=== PATIENT | male | born 1955 | race Caucasian/White ===

== ENCOUNTER → 2017-05-11 | Outpatient (CLI) | payer BC, OTHER ==
[~2017-05-11] MED LIST: CLON0.5T3 PO; IBUP-103 PO; MULT-506 PO
--- NOTE | 2017-05-11 12:54 | DIAGNOSTIC IMAGING REPORT ---
LEFT SHOULDER 3 VIEWS CLINICAL HISTORY: Left shoulder sprain. FINDINGS: 3 views of the left shoulder are obtained. No prior studies are available for comparison at the time of dictation. The skeletal structures are well mineralized. No fracture or dislocation is seen. Mild productive degenerative change is seen at the acromioclavicular joint. The glenohumeral articulation is preserved. The overlying soft tissues are within normal limits. Imaged left upper lobe lung parenchyma appears clear. IMPRESSION: No fracture or dislocation is seen in the left shoulder. Electronically signed by: Jaspal Mariano M.D. 05/11/2017 12:52 PM Dictated Date/Time: 05/11/2017 12:51 PM
== END | disposition home or self-care (01) ==
LOC: C.RAD1850 12:34
PROVIDERS: ATTEND Preventive Medicine Occupational Medicine
DX: S43.401A Unspecified sprain of right shoulder joint, initial encounter (principal); S40.011A Contusion of right shoulder, initial encounter; X58.XXXA Exposure to other specified factors, initial encounter

== ENCOUNTER → 2017-05-20 | Outpatient (CLI) | payer OTHER, BC ==
--- NOTE | 2017-05-20 19:25 | DIAGNOSTIC IMAGING REPORT ---
ADDENDUM Findings were discussed with the patient on 05/20/17 at 21:00. Immobilization of the shoulder and a possible emergency department visit were discussed with the patient. The patient has a scheduled appointment with his referring physician on Tuesday and would prefer to follow-up with his doctor. Electronically signed by: Jaspal Mariano M.D. 05/20/2017 8:58 PM Dictated Date/Time: 05/20/2017 8:55 PM ORIGINAL REPORT MRI OF THE LEFT SHOULDER CLINICAL HISTORY: Left shoulder pain. COMPARISON STUDY: Radiograph of left shoulder dated 05/11/2017. TECHNIQUE: MRI of the left shoulder was performed utilizing various T1 and T2 weighted sequences in the axial, sagittal, coronal planes. IV contrast was not administered for this examination. The examination is modestly degraded by motion artifact. FINDINGS: Rotator cuff: There is tendinopathy of the supraspinatus tendon. There is a large full-thickness tear through the anterior fibers of the services supraspinatous tendon, best seen on coronal image #9. The tear measures up to 6 mm in length and 10 mm in AP diameter, and is located approximately 2 cm from the leading edge. The posterior fibers of the tendon remain intact. No musculotendinous retraction is seen. Conus medullaris tendon is preserved. The teres minor and subscapularis tendons are intact. There is subacromial and subdeltoid bursal fluid. Productive degenerative changes seen at the acromioclavicular joint. Biceps tendon: The long head of the biceps tendon is normal in signal intensity and located within the bicipital groove. The anchor is maintained. Labrum: There is a SLAP tear of the superior labrum. Shoulder joint: There is a minimally distracted fracture through the anterior glenoid, best seen on axial image #12. The fragment measures approximately 9 mm and is displaced by at most 2 mm. This extends through the articular cartilage of the glenoid. There is no joint effusion. . Musculature and soft tissues: Edema is seen within the body of the infraspinous muscle. No atrophy is identified. The remaining shoulder musculature is normal in bulk and signal intensity. IMPRESSION: 1. There is an avulsion fracture through the anterior aspect of the glenoid which extends through the articular cartilage. The avulsed fragment measures up to 9 mm and is distracted by most 2 mm. 2. There is a SLAP tear of the glenoid labrum. 3. There is a large full thickness tear involving the anterior fibers of the supraspinatous tendon as detailed above. The posterior fibers are intact and there is no musculotendinous retraction. 4. Intramuscular edema is noted within the body of supraspinatus. 5. The remainder of the rotator cuff is intact. Electronically signed by: Jaspal Mariano M.D. 05/20/2017 7:24 PM Dictated Date/Time: 05/20/2017 7:15 PM
== END | disposition home or self-care (01) ==
LOC: C.MRI 18:26 → EDSTATUS 19:00
PROVIDERS: ATTEND Preventive Medicine Occupational Medicine
DX: S43.432A Superior glenoid labrum lesion of left shoulder, initial encounter (principal); M75.102 Unspecified rotator cuff tear or rupture of left shoulder, not specified as traumatic; X58.XXXA Exposure to other specified factors, initial encounter; R60.9 Edema, unspecified

== ENCOUNTER → 2017-07-18 | Outpatient (CLI) | payer OTHER, BC | END | disposition home or self-care (01) | LOC: C.LABSPEC 13:07 | PROVIDERS: ATTEND Internal Medicine | DX: Z12.11 Encounter for screening for malignant neoplasm of colon (principal) ==

== ENCOUNTER 2023-04-15 17:47 | Observation (INO) ==
--- NOTE | 2023-04-15 17:52 | ED Triage Note ---
Date of Service April 15, 2023 History of Present Illness This patient was briefly evaluated while in triage. An abbreviated physical exam was performed. This patient is a 67-year-old Male who presents to the ED for evaluation of Feeling weak, hot, poor sleep x 2 days, anorexia drinking fine no CP/SOB/Cough/Abd pain/vomiting Physical Exam GENERAL: NAD, ambulatory into triage CARDIOVASCULAR: RRR RESPIRATORY: CTA ABDOMEN: BS x 4. Nontender to palpation. Initial orders for labs and / or imaging were placed and patient was placed in the waiting area until a bed is available. Please see further documentation for the full ED course.
[2023-04-15] MEDS ORDERED: SODIUM CHLORIDE 0.9% 1000ML 1,000 ML IV ONE ×2 (18:09→20:18)
--- NOTE | 2023-04-15 18:11 | Emergency Department Note ---
Impression & Plan Sepsis, Weakness, Leukocytosis, Acute UTI, Elevated troponin, Acute hyponatremia ED Provider Note NAME: ALEJANDRA JEFFERS AGE: 67 SEX: M : 1955 ARRIVES VIA: Walk-In INFORMANT: [Patient] ED PROVIDER(S): [Jaspal Mariee MD] CHIEF COMPLAINT: Weakness HISTORY OF PRESENT ILLNESS: The patient is a 67-year-old male who states that he has had 2 days of weakness. He has not slept in 2 days. His whole body is weak, not 1 side. He may have had some chills but there has been no fever. He has not had chest pain or abdominal pain. No vomiting or diarrhea. He is not short of breath. No urinary complaints. He has a slight cough but nothing really to speak of. No recent sick contacts. He cannot recall ever feeling this way before. PMHx/PSHx: See Below SOCIAL HISTORY: See Below. PHYSICAL EXAM: GENERAL: Patient is in no acute distress. HEENT: No acute trauma, normocephalic atraumatic, mucous membranes moist, no nasal congestion. NECK: No stridor, no adenopathy, no meningismus, trachea is midline. LUNGS: Clear to auscultation bilaterally, no wheeze, no rhonchi, breath sounds equal. HEART: Without murmurs gallops or rubs, regular rate and rhythm. ABDOMEN: Soft, nontender, bowel sounds positive, no peritonitis. EXTREMITIES: No cyanosis or edema, full range of motion of all the joints wi thout pain or difficulty, no signs for acute trauma. NEUROLOGIC: Oriented x 3, no acute motor or sensory deficits, no focal weakness. SKIN: No rash, no jaundice, no diaphoresis. DIFFERENTIAL DIAGNOSIS: Dehydration, electrolyte imbalance, viral illness, foodborne illness, UTI, s epsis, Lyme disease, [place], among others. EMERGENCY DEPARTMENT COURSE/PROCEDURES: Prior/Outside records reviewed: None. ECG per my interpretation: Indication was weakness. The ECG shows a normal sinus rhythm with a rate of 99. There is no ST elevation, no PVCs. The QTc is 433. Continuous Cardiac Monitoring per my interpretation: An order was placed for continuous cardiac monitoring. The monitor shows a rate of 101 with sinus tachycardia. Critical Care Note: I have personally spent 43 minutes of critical care time in the direct management of this patient. This includes bedside care, interpretation of diagnostic studies, and testing, discussion with consultants, patient, and family members, and other required patient management activities. This 43 minutes is in excess of all separately billable procedures. MEDICAL DECISION MAKING: There is a marked leukocytosis at 30,000, this would be consistent with infection. There was a normal hemoglobin and platelet count. Sodium was low at 130, no renal failure. Lactic acid level was not elevated making severe sepsis less likely. No concerning liver enzyme elevation. The patient appeared to be in a euthyroid state. ECG shows a normal sinus rhythm, no ischemia. Cardiac enzyme testing x1 is slightly elevated. This troponin elevation could be secondary to cardiac injury or just mismatch. Urinalysis is consistent with infection. Lyme disease testing is negative. COVID test is negative. Chest film does not show pneumonia or CHF per my review. Abdominal and pelvis CT shows some incidental findings, no urinary or bowel obstruction, no acute surgical process by CT imaging. Patient received IV saline, 2 L. He received IV Zofran for nausea, he was given IV cefepime as antibiotic coverage. The patient appears to be in early sepsis from a urinary source. This has caused his weakness and complaints. The patient is in need of a hospital stay. I did speak with the patient and his significant other. I did speak with case management, the on-call hospitalist was consulted. The patient does appear improved with the treatment provided here in the ED. DISPOSITION: Past Med/Surg History Medical History (Updated 04/15/23 @ 22:41 by Jaspal Mariee MD) Acute bronchitis Social History Smoking Status: Never smoker Preferred Language: [place] Feels Safe at Home: Yes Allergies Allergies Allergy/AdvReac Type Severity Reaction Status Date / Time No Known Allergies Allergy NONE Unverified 04/15/23 20:40 Home Meds Home Medications Medication Instructions Recorded Confirmed ibuprofen 400 mg tablet 400 mg PO DAILY PRN Pain 04/27/19 04/15/23 [id number] acid 300 1 tab PO DAILY 04/15/23 04/15/23 mcg-lycopene 600 mcg-lutein 300 mcg tablet (Centrum Silver Ultra Men's) Results & Data (ED) Vital Signs Vital Signs - 24 hr 04/15/23 17:51 04/15/23 18:08 04/15/23 17:53 Temperature 36.3 C L Temperature Source Temporal Artery Scan Pulse Rate 100 H 102 H Pulse Rate from SpO2 Sensor Respiratory Rate 20 Respiratory Effort / Characteristics Non-Labored Respiratory Depth Normal Blood Pressure 125/76 Blood Pressure Mean 92 Pulse Oximetry 95 Oxygen Delivery Method Room Air Room Air Sepsis Recent Fever Within 48 Hours No Sepsis New/Unexplained Change in Mental Status N/A Sepsis Action Taken by Nursing No Action Required 04/15/23 18:09 04/15/23 18:30 04/15/23 19:00 Temperature Temperature Source Pulse Rate 99 H 100 H Pulse Rate from SpO2 Sensor 100 H 101 H Respiratory Rate 24 22 Respiratory Effort / Characteristics Respiratory Depth Blood Pressure Blood Pressure Mean Pulse Oximetry 93 94 Oxygen Delivery Method Sepsis Recent Fever Within 48 Hours Sepsis New/Unexplained Change in Mental Status Sepsis Action Taken by Nursing 04/15/23 19:30 04/15/23 20:02 04/15/23 20:03 Temperature Temperature Source Pulse Rate 99 H Pulse Rate from SpO2 Sensor 98 H 97 H Respiratory Rate 24 Respiratory Effort / Characteristics Respiratory Depth Blood Pressure 141/66 H Blood Pressure Mean 95 Pulse Oximetry 94 93 Oxygen Delivery Method Sepsis Recent Fever Within 48 Hours Sepsis New/Unexplained Change in Mental Status Sepsis Action Taken by [facility] Medications Current Medication List: was personally reviewed by me Laboratory Data Attestation: I reviewed the patient's lab results. 04/15/23 18:08 04/15/23 18:09 Lab Results 04/15/23 04/15/23 04/15/23 Range/Units 18:08 18:08 18:08 WBC 30.22 H* (4.8-10.8) K/ul RBC 5.21 (4.70-6.10) M/uL Hgb 16.6 (14.0-18.0) g/dl Hct 46.5 (42.0-52.0) % MCV 89.3 (80.0-100.0) fL MCH 31.9 (25.0-34.0) pg MCHC 35.7 (32.0-36.0) g/dL RDW Std Deviation 43.8 (36.4-46.3) fL RDW Coeff of Uday 13.3 (11.5-14.5) % Plt Count 211 (130-400) K/uL MPV 10.0 (9.4-12.4) fL Immature Gran % (Auto) 1.0 % Neut % (Auto) 82.2 % Lymph % (Auto) 8.4 % [place] % (Auto) 8.1 % Eos % (Auto) 0.0 % Baso % (Auto) 0.3 % Neut # (Auto) 24.84 H (1.40-6.50) K/uL Lymph # (Auto) 2.53 (1.2-3.4) K/uL [place] # (Auto) 2.45 H (0.11-0.59) K/uL Eos # (Auto) 0.01 (0-0.50) K/uL Baso # (Auto) 0.09 (0-0.2) K/uL Immature Gran # (Auto) 0.30 H (0.01-0.20) K/uL RBC Morphology Unremarkable Sodium (136-145) mmol/L Potassium (3.5-5.1) mmol/L Chloride (98-107) mmol/L Carbon Dioxide (21-32) mmol/L Anion Gap (3-11) BUN (6-23) mg/dl Creatinine (0.6-1.4) mg/dl Est Cr Clr Drug Dosing ml/min Est GFR ( Amer) ml/min Est GFR (Non-Af Amer) ml/min BUN/Creatinine Ratio (10-20) Glucose (70-99(Fasting)) mg/dl Lactate (0.4-2.0) mmol/L Calcium (8.6-10.3) mg/dl Magnesium (1.7-2.4) mg/dl Total Bilirubin (0.2-1.0) mg/dl AST (13-39) U/L ALT (7-52) U/L Alkaline Phosphatase (34-104) U/L Troponin I High Sens (0-20) pg/ml Total Protein (6.0-8.3) gm/dl Albumin (3.4-5.0) gm/dl Globulin (2.5-4.0) gm/dl Albumin/Globulin Ratio (0.9-2) TSH 2.712 (0.300-4.500) uIu/ml Urine Color Urine Appearance (Clear) Urine pH (4.5-7.5) Ur Specific [place] (1.000-1.030) Urine Protein (Negative) Urine Glucose (UA) (Negative) Urine Ketones (Negative) Urine Blood (Negative) Urine Nitrite (Negative) Urine Bilirubin (Negative) Urine Urobilinogen (Negative) Ur Leukocyte Esterase (Negative) Urine WBC (Auto) (0-5) /hpf Urine RBC (Auto) (0-4) /hpf U Hyaline Cast (Auto) (0-5) /lpf U Epithel Cells (Auto) (0-5) /lpf Urine Bacteria (Auto) (Negative) Lyme Disease IgG Ab Negative (Negative) Lyme Disease IgM Ab Negative (Negative) SARS-CoV-2, RNA, NAAT (NEGATIVE) 04/15/23 04/15/23 04/15/23 Range/Units 18:09 18:33 18:40 WBC (4.8-10.8) K/ul RBC (4.70-6.10) M/uL Hgb (14.0-18.0) g/dl Hct (42.0-52.0) % MCV (80.0-100.0) fL MCH (25.0-34.0) pg MCHC (32.0-36.0) g/dL RDW Std Deviation (36.4-46.3) fL RDW Coeff of Uday (11.5-14.5) % Plt Count (130-400) K/uL MPV (9.4-12.4) fL Immature Gran % (Auto) % Neut % (Auto) % Lymph % (Auto) % [place] % (Auto) % Eos % (Auto) % Baso % (Auto) % Neut # (Auto) (1.40-6.50) K/uL Lymph # (Auto) (1.2-3.4) K/uL [place] # (Auto) (0.11-0.59) K/uL Eos # (Auto) (0-0.50) K/uL Baso # (Auto) (0-0.2) K/uL Immature Gran # (Auto) (0.01-0.20) K/uL RBC Morphology Sodium 130 L (136-145) mmol/L Potassium 3.9 (3.5-5.1) mmol/L Chloride 99 (98-107) mmol/L Carbon Dioxide 23 (21-32) mmol/L Anion Gap 8 (3-11) BUN 16 (6-23) mg/dl Creatinine 1.13 (0.6-1.4) mg/dl Est Cr Clr Drug Dosing 81.5 ml/min Est GFR ( Amer) 78.6 ml/min Est GFR (Non-Af Amer) 67.8 ml/min BUN/Creatinine Ratio 14.2 (10-20) Glucose 108 H (70-99(Fasting)) mg/dl Lactate 1.2 (0.4-2.0) mmol/L Calcium 9.4 (8.6-10.3) mg/dl Magnesium 1.9 (1.7-2.4) mg/dl Total Bilirubin 1.5 H (0.2-1.0) mg/dl AST 23 (13-39) U/L ALT 32 (7-52) U/L Alkaline Phosphatase 89 (34-104) U/L Troponin I High Sens 31.8 H (0-20) pg/ml Total Protein 7.7 (6.0-8.3) gm/dl Albumin 3.7 (3.4-5.0) gm/dl Globulin 4.0 (2.5-4.0) gm/dl Albumin/Globulin Ratio 0.9 (0.9-2) TSH (0.300-4.500) uIu/ml Urine Color Urine Appearance (Clear) Urine pH (4.5-7.5) Ur Specific [place] (1.000-1.030) Urine Protein (Negative) Urine Glucose (UA) (Negative) Urine Ketones (Negative) Urine Blood (Negative) Urine Nitrite (Negative) Urine Bilirubin (Negative) Urine Urobilinogen (Negative) Ur Leukocyte Esterase (Negative) Urine WBC (Auto) (0-5) /hpf Urine RBC (Auto) (0-4) /hpf U Hyaline Cast (Auto) (0-5) /lpf U Epithel Cells (Auto) (0-5) /lpf Urine Bacteria (Auto) (Negative) Lyme Disease IgG Ab (Negative) Lyme Disease IgM Ab (Negative) SARS-CoV-2, RNA, NAAT NEGATIVE (NEGATIVE) 04/15/23 Range/Units 20:00 WBC (4.8-10.8) K/ul RBC (4.70-6.10) M/uL Hgb (14.0-18.0) g/dl Hct (42.0-52.0) % MCV (80.0-100.0) fL MCH (25.0-34.0) pg MCHC (32.0-36.0) g/dL RDW Std Deviation (36.4-46.3) fL RDW Coeff of Uday (11.5-14.5) % Plt Count (130-400) K/uL MPV (9.4-12.4) fL Immature Gran % (Auto) % Neut % (Auto) % Lymph % (Auto) % [place] % (Auto) % Eos % (Auto) % Baso % (Auto) % Neut # (Auto) (1.40-6.50) K/uL Lymph # (Auto) (1.2-3.4) K/uL [place] # (Auto) (0.11-0.59) K/uL Eos # (Auto) (0-0.50) K/uL Baso # (Auto) (0-0.2) K/uL Immature Gran # (Auto) (0.01-0.20) K/uL RBC Morphology Sodium (136-145) mmol/L Potassium (3.5-5.1) mmol/L Chloride (98-107) mmol/L Carbon Dioxide (21-32) mmol/L Anion Gap (3-11) BUN (6-23) mg/dl Creatinine (0.6-1.4) mg/dl Est Cr Clr Drug Dosing ml/min Est GFR ( Amer) ml/min Est GFR (Non-Af Amer) ml/min BUN/Creatinine Ratio (10-20) Glucose (70-99(Fasting)) mg/dl Lactate (0.4-2.0) mmol/L Calcium (8.6-10.3) mg/dl Magnesium (1.7-2.4) mg/dl Total Bilirubin (0.2-1.0) mg/dl AST (13-39) U/L ALT (7-52) U/L Alkaline Phosphatase (34-104) U/L Troponin I High Sens (0-20) pg/ml Total Protein (6.0-8.3) gm/dl Albumin (3.4-5.0) gm/dl Globulin (2.5-4.0) gm/dl Albumin/Globulin Ratio (0.9-2) TSH (0.300-4.500) uIu/ml Urine Color [place] Urine Appearance Cloudy A (Clear) Urine pH 5.0 (4.5-7.5) Ur Specific [place] 1.022 (1.000-1.030) Urine Protein Trace H (Negative) Urine Glucose (UA) Negative (Negative) Urine Ketones Trace H (Negative) Urine Blood 1+ H (Negative) Urine Nitrite Negative (Negative) Urine Bilirubin Negative (Negative) Urine Urobilinogen Negative (Negative) Ur Leukocyte Esterase 2+ H (Negative) Urine WBC (Auto) >30 H (0-5) /hpf Urine RBC (Auto) 0-4 (0-4) /hpf U Hyaline Cast (Auto) 5-10 H (0-5) /lpf U Epithel Cells (Auto) 10-20 H (0-5) /lpf Urine Bacteria (Auto) 4+ H (Negative) Lyme Disease IgG Ab (Negative) Lyme Disease IgM Ab (Negative) SARS-CoV-2, RNA, NAAT (NEGATIVE) Administered Medications Discontinued Medications Sodium Chloride (Nss 1000ml) 1,000 mls @ 999 mls/hr IV .Q1H1M ONE Stop: 04/15/23 19:09 Last Infusion: 04/15/23 20:29 Dose: 0 mls/hr Documented By: Admin: 04/15/23 18:51 Dose: 999 mls/hr Documented By: DAYANNA Cefepime HCl (Maxipime) 2,000 mg in 20 mls @ 5 mls/min IV NOW STA; Protocol Stop: 04/15/23 18:56 Last Admin: 04/15/23 19:17 Dose: 5 mls/min Documented By: Sodium Chloride (Nss 1000ml) 1,000 mls @ 999 mls/hr IV .Q1H1M ONE Stop: 04/15/23 21:18 Last Admin: 04/15/23 20:36 Dose: 999 mls/hr Documented By: Ioversol (Optiray 320 100ml) 88 ml IV ONCE ONE Stop: 04/15/23 19:52 Last Admin: 04/15/23 19:51 Dose: 88 ml Documented By: ULISES Ondansetron HCl (Ondansetron Inj 2 Mg/Ml 2 Ml Vial) 4 mg IV NOW STA Stop: 04/15/23 19:23 Last Admin: 04/15/23 19:24 Dose: 4 mg Documented By: ENS Imaging Data Radiologist's Impression: Chest X-Ray 04/15/23 17:53 SINGLE VIEW CHEST CLINICAL HISTORY: Generalized weakness. Cough and dyspnea FINDINGS: An AP, portable, upright chest radiograph is compared to study dated 01/04/2016. The examination is mildly degraded by portable technique and patient rotation. The cardiomediastinal silhouette is unremarkable noting atherosclerotic calcification of the thoracic aorta. There is mild bibasilar scarring/atelectasis. The lungs and pleural spaces are otherwise clear. No pneumothorax is seen. The bony thorax is grossly intact. IMPRESSION: No active disease in the chest. ACT 112: Negative or not required by law. Electronically signed by: Jaspal Mariano M.D. 04/15/2023 6:49 PM Abdomen/Pelvis CT 04/15/23 19:23 Exam(s): CT ABDOMEN + PELVIS With Contrast IV Amt: 88ml optiray 320 EXAM: CT Abdomen and Pelvis With Intravenous Contrast CLINICAL HISTORY: Reason for exam: infection, elev bilirubin, wbc 30,000, vomiting. TECHNIQUE: Axial computed tomography images of the abdomen and pelvis with intravenous contrast. CTDI is 26.33 mGy and DLP is 1371.47 mGy-cm. Automated exposure control was utilized for the study. A dose lowering technique was utilized adhering to the principles of ALARA. CONTRAST: Patient received 88ml optiray 320 of IV contrast COMPARISON: No relevant prior studies available. FINDINGS: Lung bases: Unremarkable. No mass. No consolidation. ABDOMEN: Liver: Hepatomegaly and steatosis. Gallbladder and bile ducts: Gallbladder appears normal. No calcified stones. No biliary dilatation. Pancreas: Unremarkable. No mass. No ductal dilation. Spleen: Calcified splenic granulomas. Adrenals: Indeterminate left adrenal nodule measuring 1.8 cm. Right adrenal gland is normal. Kidneys and ureters: Symmetric renal enhancement. No hydronephrosis. Stomach and bowel: Unremarkable. No obstruction. No mucosal thickening. PELVIS: Appendix: Normal appendix. Bladder: Unremarkable. Normal urinary bladder. Reproductive: Prostatomegaly. ABDOMEN and PELVIS: Intraperitoneal space: Unremarkable. No free air. No significant fluid collection. Bones/joints: No acute fracture or dislocation. Degenerative changes of the spine. Soft tissues: Unremarkable. Vasculature: Unremarkable. No abdominal aortic aneurysm. Lymph nodes: Unremarkable. No enlarged lymph nodes. IMPRESSION: 1. No identified cause for elevated bilirubin or elevated WBC. 2. Hepatomegaly and steatosis. 3. Gallbladder and common bile duct appear normal. 4. Indeterminate left adrenal nodule measuring 1.8 cm. If there is no history of malignancy consider a follow-up low dose, non-contrast adrenal CT or chemical-shift adrenal MRI in 12 months. If there is a history of malignancy recommend a low dose, non-emergent, non-contrast adrenal CT or chemical-shift adrenal MRI follow-up study. Electronically signed by: Chika Anton M.D. 04/15/23 21:05 PM Discharge Plan Visit Data Chief Complaint: Weakness Stated Complaint: WEAK, CANT SLEEP ED Provider: Jaspal Mariee Discharge Problem: Sepsis, Weakness, Leukocytosis, Acute UTI, Elevated troponin, Acute hyponatremia Patient Disposition: Admitted As Inpatient Condition: Fair Forms Stand Alone Forms: [facility] Medical Prescriptions Prescriptions: No Action ibuprofen 400 mg Tablet 400 mg PO DAILY PRN (Reason: Pain) Centrum Silver Ultra Men's 300-600-300 mcg Tablet 1 tab PO DAILY Referrals Referrals: Stephan Lewis MD [Primary Care Provider] -
[2023-04-15 18:43] LABS: Hematocrit (blood only) 46.5 % (42.0-52.0); Hemoglobin 16.6 g/dl (14.0-18.0); Mean Corpuscular Hemoglobin 31.9 pg (25.0-34.0); Mean Corpuscular Hgb Conc 35.7 g/dL (32.0-36.0); Mean Corpuscular Volume 89.3 fL (80.0-100.0); Platelet Count 211 K/uL (130-400); RDW Coefficient of Variation 13.3 % (11.5-14.5); RDW Standard Deviation 43.8 fL (36.4-46.3); Red Blood Count 5.21 M/uL (4.70-6.10); White Blood Count 30.22 K/ul (4.8-10.8)
[2023-04-15 18:49] LABS: Albumin Level 3.7 gm/dl (3.4-5.0); Bilirubin,Total 1.5 mg/dl (0.2-1.0); Calcium 9.4 mg/dl (8.6-10.3); Magnesium 1.9 mg/dl (1.7-2.4); Potassium 3.9 mmol/L (3.5-5.1)
--- NOTE | 2023-04-15 18:51 | XRay Report ---
SINGLE VIEW CHEST CLINICAL HISTORY: Generalized weakness. Cough and dyspnea FINDINGS: An AP, portable, upright chest radiograph is compared to study dated 01/04/2016. The examina tion is mildly degraded by portable technique and patient rotation. The cardiomediastinal silhouette is unremarkable noting atherosclerotic calcification of the thoracic aorta. There is mild bibasilar scarring/atelectasis. The lungs and pleural spaces are otherwise clear. No pneumothorax is seen. The bony thorax is grossly intact. IMPRESSION: No active disease in the chest. ACT 112: Negative or not required by law. Electronically signed by: Jaspal Mariaon M.D. 04/15/2023 6:49 PM
[2023-04-15 18:53] LABS: Basophils # (auto) 0.09 K/uL (0-0.2); Basophils % (auto) 0.3 %; Eosinophils # (auto) 0.01 K/uL (0-0.50); Lymphocytes # (auto) 2.53 K/uL (1.2-3.4); Lymphocytes % (auto) 8.4 %; Monocytes # (auto) 2.45 K/uL (0.11-0.59); Monocytes % (auto) 8.1 %; Neutrophils # (auto) 24.84 K/uL (1.40-6.50); Neutrophils % (auto) 82.2 %; RBC Morphology Unremarkable
[2023-04-15] MEDS ORDERED: CEFEPIME 2,000 MG/20 ML VIAL IV STA (18:53)
[2023-04-15 18:55] LABS: Albumin Globulin Ratio 0.9 (0.9-2); BUN Creatinine Ratio 14.2 (10-20); Creatinine Clr Calc Pharmacy 81.5 ml/min; Est GFR (African American) 78.6 ml/min; Est GFR (Non-African American) 67.8 ml/min; Total Protein 7.7 gm/dl (6.0-8.3)
[2023-04-15 19:00] LABS: Troponin I High Sensitivity 31.8 pg/ml (0-20)
[2023-04-15 19:02] LABS: Lyme Ab IgG w/WB Rflx Negative (Negative); Lyme Ab IgM w/WB Rflx Negative (Negative)
[2023-04-15] MEDS ORDERED: ONDANSETRON INJ 2 MG/ML 2 ML VIAL IV STA (19:22)
[2023-04-15] MEDS ORDERED: OPTIRAY 320 100ml IV ONE (19:51)
[2023-04-15 20:37] LABS: Appearance Urine Cloudy (Clear); Bacteria Urine Automated 4+ (Negative); Bilirubin Urine Negative (Negative); Blood Urine 1+ (Negative); Color Urine Orange; Glucose Urine UA Negative (Negative); Ketones Urine Trace (Negative); Leukocyte Esterase Urine 2+ (Negative); Nitrite Urine Negative (Negative); Protein Urine Trace (Negative); RBC Urine Automated 0-4 /hpf (0-4); Specific Gravity Urine 1.022 (1.000-1.030); Urobilinogen Urine Negative (Negative); WBC Urine Automated >30 /hpf (0-5)
--- NOTE | 2023-04-15 21:06 | CT Scan Report ---
Exam(s): CT ABDOMEN + PELVIS With Contrast IV Amt: 88ml optiray 320 EXAM: CT Abdomen and Pelvis With Intravenous Contrast CLINICAL HISTORY: Reason for exam: infection, elev bilirubin, wbc 30,000, vomiting. TECHNIQUE: Axial computed tomography images of the abdomen and pelvis with intravenous contrast. CTDI is 26.33 mGy and DLP is 1371.47 mGy-cm. Automated exposure control was utilized for the study. A dose lowering technique was utilized adhering to the principles of ALARA. CONTRAST: Patient received 88ml optiray 320 of IV contrast COMPARISON: No relevant prior studies available. FINDINGS: Lung bases: Unremarkable. No mass. No consolidation. ABDOMEN: Liver: Hepatomegaly and steatosis. Gallbladder and bile ducts: Gallbladder appears normal. No calcified stones. No biliary dilatation. Pancreas: Unremarkable. No mass. No ductal dilation. Spleen: Calcified splenic granulomas. Adrenals: Indeterminate left adrenal nodule measuring 1.8 cm. Right adrenal gland is normal. Kidneys and ureters: Symmetric renal enhancement. No hydronephrosis. Stomach and bowel: Unremarkable. No obstruction. No mucosal thickening. PELVIS: Appendix: Normal appendix. Bladder: Unremarkable. Normal urinary bladder. Reproductive: Prostatomegaly. ABDOMEN and PELVIS: Intraperitoneal space: Unremarkable. No free air. No significant fluid collection. Bones/joints: No acute fracture or dislocation. Degenerative changes of the spine. Soft tissues: Unremarkable. Vasculature: Unremarkable. No abdominal aortic aneurysm. Lymph nodes: Unremarkable. No enlarged lymph nodes. IMPRESSION: 1. No identified cause for elevated bilirubin or elevated WBC. 2. Hepatomegaly and steatosis. 3. Gallbladder and common bile duct appear normal. 4. Indeterminate left adrenal nodule measuring 1.8 cm. If there is no history of malignancy consider a follow-up low dose, non-contrast adrenal CT or chemical-shift adrenal MRI in 12 months. If there is a history of malignancy recommend a low dose, non-emergent, non-contrast adrenal CT or chemical-shift adrenal MRI follow-up study. Electronically signed by: Chika Anton M.D. 04/15/23 21:05 PM
[2023-04-16] MEDS ORDERED: ACETAMINOPHEN 325 MG TAB PO PRN (01:18)
[2023-04-16] MEDS ORDERED: ALUMINUM/MAGNESIUM SUSP 30 ML UDC PO PRN (01:18)
--- NOTE | 2023-04-16 06:10 | History & Physical Report ---
Date of Service April 16, 2023 Assessment & Plan (1) Sepsis: Plan: Patient presents significant fatigue and generalized weakness. Lactic acid not elevated white count greater than 30,000 procalcitonin not elevated Urinalysis shows evidence of positive leukocyte esterase Patient started on IV antibiotic therapy with IV cefepime in the ED which will be continued Follow blood and urine culture results adjust antibiotics based on sensitivity results IV fluid bolus as per sepsis protocol Monitor input output closely and replace intravascular volume with isotonic saline (2) Leukocytosis: Plan: Patient found to have elevated white count of 30,000, without evidence of elevated lactic acid level Likely secondary to acute UTI and associated early sepsis (3) Acute UTI: Plan: UA shows evidence of positive leukocyte esterase and pyuria with elevated white count over 30,000 Patient started on empiric cefepime, Follow urine cultures and adjust antibiotics based on sensitivity results (4) Elevated troponin: Plan: Patient found to have elevated troponin level of 31 in the ED No EKG abnormalities indicating ischemia and patient denies any chest pain trend troponin level (5) Weakness: Plan: Patient presents with severe fatigue likely secondary to underlying UTI with sepsis check TSH level (6) Acute hyponatremia: Plan: Patient found to have a serum sodium level of 130 Patient clinically appears volume depleted obtain urine lites and osmolality Patient given IV fluid boluses continue on normal saline to replace intrava scular volume Recheck sodium level in a.m. Admission and Anticipated Discharge Date Admission Date: April 15, 2023 History of Present Illness Chief Complaint: Generalized weakness Primary Care Provider: Stephan Lewis MD This is a 67-year-old male with no significant past medical history who presents to the emergency department with complaints of significant fatigue and generalized weakness has been present over the past 2 to 3 days. Patient reports extreme exhaustion over the past 2 days and reports that he has subjective chills but no recorded temperature reported. Patient has been feeling wiped out and has not been able to sleep well over the past 2 days as well. Patient denies any chest pain or shortness of breath and denies any nausea or vomiting. The symptoms have worsened over the past 24 hours and hence patient presents to ED for further evaluation.. Upon evaluation in the ED patient found to have elevated white count of over 30,000 along with low sodium level of 130. Further labs including lactic acid was not elevated and patient's urinalysis shows evidence of underlying urinary tract infection and patient is started on IV cefepime and is being admitted for further management this time. Allergies Allergy/AdvReac Type Severity Reaction Status Date / Time No Known Allergies Allergy NONE Unverified 04/15/23 20:40 Home Medications Medication Instructions Recorded Confirmed Type ibuprofen 400 mg tablet 400 mg PO DAILY PRN Pain 04/27/19 04/15/23 History [id number] acid 300 1 tab PO DAILY 04/15/23 04/15/23 History mcg-lycopene 600 mcg-lutein 300 mcg tablet (Centrum Silver Ultra Men's) Past Med/Surg History Medical History (Updated 04/15/23 @ 22:41 by Jaspal Mariee MD) Acute bronchitis Social History Smoking Status: Never smoker Do You Dip or Chew Tobacco: No; Hx Alcohol Use: Yes Alcohol type: beer, wine and hard liquor Hx Substance Use: No Preferred Language: Lao Communication Ability: Effective [employer] Required: No Beliefs That Will Affect Care: None Current Living Situation: Spouse Current Living Situation Comment: Lives with girl friend Camila Feels Safe at Home: Yes Review of Systems Review of Systems: Constitutional-positive chills but no fever ENT-no blurred vision, no double vision, no epistaxis, Respiratory- no shortness of breath occasional cough no wheezing Cardiac-no palpitations, no chest pain, GI-no nausea, vomiting, diarrhea, melena, -no urinary retention, no urinary incontinence, occasional dysuria Musculoskeletal-extreme fatigue Skin-no bruising, no rashes, Neuro-no isolated weakness, no paresthesia, Physical Exam Physical Exam: Oral mucosa dry Head and ENT no thyroid enlargement trachea midline Cardiovascular S1-S2 are normal no S3 Lungs bilateral air entry decreased at bases no wheezing Abdomen soft nondistended positive bowel sounds no rebound tenderness Extremity shows trace edema Neurologically no focal deficits Skin shows no rash no cyanosis Results & Data Results & Data Vital Signs (Past 12 Hours) Vital Signs Temp Pulse Resp BP BP Pulse Ox O2 Del Method 04/16/23 01:15 Room Air 04/16/23 01:15 89 04/16/23 01:21 36.9 C 18 144/82 H 94 Room Air 04/16/23 00:30 87 26 H 04/16/23 00:01 92 H 23 04/16/23 00:01 134/69 04/16/23 00:00 90 27 H 04/15/23 23:30 90 27 H 04/15/23 23:02 92/52 L 04/15/23 23:02 89 29 H 04/15/23 23:00 88 22 04/15/23 22:59 122/60 04/15/23 22:59 97 H 24 04/15/23 22:58 92 H 26 H 04/15/23 22:00 99 H 25 H 04/15/23 21:30 91 H 23 04/15/23 21:00 95 H 20 94 04/15/23 20:30 96 H 26 H 93 04/15/23 20:04 101 H 26 H 93 04/15/23 20:03 141/66 H 04/15/23 20:02 93 04/15/23 19:30 99 H 24 94 04/15/23 19:00 100 H 22 04/15/23 18:30 94 Laboratory Results Short CBC 04/15/23 Range/Units 18:08 WBC 30.22 H* (4.8-10.8) K/ul Hgb 16.6 (14.0-18.0) g/dl Hct 46.5 (42.0-52.0) % Plt Count 211 (130-400) K/uL BMP 04/15/23 18:09 Sodium 130 L Potassium 3.9 Chloride 99 Carbon Dioxide 23 BUN 16 Creatinine 1.13 Glucose 108 H Calcium 9.4 Liver Function 04/15/23 Range/Units 18:09 Total Bilirubin 1.5 H (0.2-1.0) mg/dl AST 23 (13-39) U/L ALT 32 (7-52) U/L Alkaline Phosphatase 89 (34-104) U/L Albumin 3.7 (3.4-5.0) gm/dl Urine 04/15/23 Range/Units 20:00 Urine Color [place] Urine Appearance Cloudy A (Clear) Urine pH 5.0 (4.5-7.5) Ur Specific [place] 1.022 (1.000-1.030) Urine Protein Trace H (Negative) Urine Glucose (UA) Negative (Negative) Diagnostic Findings Chest X-Ray 04/15/23 17:53 SINGLE VIEW CHEST CLINICAL HISTORY: Generalized weakness. Cough and dyspnea FINDINGS: An AP, portable, upright chest radiograph is compared to study dated . The examination is mildly degraded by portable technique and patient rotation. The cardiomediastinal silhouette is unremarkable noting atherosclerotic calcification of the thoracic aorta. There is mild bibasilar scarring/atelectasis. The lungs and pleural spaces are otherwise clear. No pneumothorax is seen. The bony thorax is grossly intact. IMPRESSION: No active disease in the chest. ACT 112: Negative or not required by law. Electronically signed by: Jaspal Mariano M.D. 04/15/2023 6:49 PM Abdomen/Pelvis CT 04/15/23 19:23 Exam(s): CT ABDOMEN + PELVIS With Contrast IV Amt: 88ml optiray 320 EXAM: CT Abdomen and Pelvis With Intravenous Contrast CLINICAL HISTORY: Reason for exam: infection, elev bilirubin, wbc 30,000, vomiting. TECHNIQUE: Axial computed tomography images of the abdomen and pelvis with intravenous contrast. CTDI is 26.33 mGy and DLP is 1371.47 mGy-cm. Automated exposure control was utilized for the study. A dose lowering technique was utilized adhering to the principles of ALARA. CONTRAST: Patient received 88ml optiray 320 of IV contrast COMPARISON: No relevant prior studies available. FINDINGS: Lung bases: Unremarkable. No mass. No consolidation. ABDOMEN: Liver: Hepatomegaly and steatosis. Gallbladder and bile ducts: Gallbladder appears normal. No calcified stones. No biliary dilatation. Pancreas: Unremarkable. No mass. No ductal dilation. Spleen: Calcified splenic granulomas. Adrenals: Indeterminate left adrenal nodule measuring 1.8 cm. Right adrenal gland is normal. Kidneys and ureters: Symmetric renal enhancement. No hydronephrosis. Stomach and bowel: Unremarkable. No obstruction. No mucosal thickening. PELVIS: Appendix: Normal appendix. Bladder: Unremarkable. Normal urinary bladder. Reproductive: Prostatomegaly. ABDOMEN and PELVIS: Intraperitoneal space: Unremarkable. No free air. No significant fluid collection. Bones/joints: No acute fracture or dislocation. Degenerative changes of the spine. Soft tissues: Unremarkable. Vasculature: Unremarkable. No abdominal aortic aneurysm. Lymph nodes: Unremarkable. No enlarged lymph nodes. IMPRESSION: 1. No identified cause for elevated bilirubin or elevated WBC. 2. Hepatomegaly and steatosis. 3. Gallbladder and common bile duct appear normal. 4. Indeterminate left adrenal nodule measuring 1.8 cm. If there is no history of malignancy consider a follow-up low dose, non-contrast adrenal CT or chemical-shift adrenal MRI in 12 months. If there is a history of malignancy recommend a low dose, non-emergent, non-contrast adrenal CT or chemical-shift adrenal MRI follow-up study. Electronically signed by: Chika Anton M.D. 04/15/23 21:05 PM Code Status & VTE Plan VTE Prophylaxis Plan VTE Prophylaxis will be ordered: Yes PG Care Time/CCT Total # of Minutes Spent Total Time Spent with Patient: Total time spent is greater than 50% in coordination of care (as documented) at patient's floor/unit and/or counseling patient: Coding Level of Care Code 00668 INT INP/OBS CARE 255MIN Diagnoses Sepsis A41.9 Sepsis acute organ dysfunction status: without acute organ dysfunction Sepsis type: sepsis due to unspecified organism Leukocytosis D72.829 Leukocytosis type: unspecified Acute UTI N39.0 Elevated troponin R77.8 Weakness R53.1 Acute hyponatremia E87.1 (1) Sepsis Sepsis acute organ dysfunction status: without acute organ dysfunction Sepsis type: sepsis due to unspecified organism Qualified Code(s): A41.9 - Sepsis, unspecified organism (2) Leukocytosis Leukocytosis type: unspecified Qualified Code(s): D72.829 - Elevated white blood cell count, unspecified
--- NOTE | 2023-04-16 06:40 | Electrocardiogram Report ---
Test Reason : Blood Pressure : / mmHG Vent. Rate : 099 BPM Atrial Rate : 099 BPM P-R Int : 150 ms QRS Dur : 086 ms QT Int : 338 ms P-R-T Axes : 049 044 043 degrees QTc Int : 433 ms Normal sinus rhythm Normal ECG When compared with ECG of 13-AUG-2010 06:43, Vent. rate has increased BY 38 BPM Confirmed by Robe Beth ([id number]) on 04/16/2023 6:39:39 AM Referred By: REFERRED SELF Confirmed By:Joselo Beth
[2023-04-16] MEDS: SODIUM CHLORIDE 0.9% 1000ML 1,000 ML IV SCH ×2 (07:09→17:31)
--- NOTE | 2023-04-16 08:24 | Hospitalist Progress Note ---
Date of Service April 16, 2023 Assessment & Plan (1) Sepsis: Plan: 67-year-old male who presented with 2-3 days of significant fatigue, chills, and sweats [employer]EW[employer]OR[employer], subsequently found to have a profound leukocytosis, tachycardia, and an abnormal UA which -- in the setting of his recent urinary frequency/urgency -- are concerning for sepsis from complicated UTI. CT-A/P negative for acute urologic or kidney abnormalities. 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 - He had urinary symptoms preceding this and is noted to have prostomegaly on CT. Will check PVRs today. This could certainly be an underlying reason for UTI. - Noted that he also has poor dentition, which could be a source for future infections -- will discuss prior to discharge / when more well - Await BCX, UCX - Continue cefepime for now. Weakness, Fatigue - Suspect secondary to above - Do not suspect he will require PT/OT but will monitor Hyponatremia - Euvolemic/Hypovolemic - Likely some component of dehydration initially given septic state, but overall looks euvolemic - May have component of SIADH in the setting of acute infection - Check sOsm, uOsm, Lidia, UCr, UK to further clarify - Low suspicion this is related to adrenal findings Adrenal Incidentaloma - LEFT adrenal nodule measuring 1.8cm appreciated incidentally on CT scan - Per radiology: Recommend "...a low-dose, non-contrast adrenal CT or chemical- shift adrenal MRI in 12 months" - Consider DHEA-S level as outpatient or DST Hepatic Steatosis - Appreciated on CT-A/P as hepatomegaly and steatosis - TBili 1.1, Na 131 otherwise liver synthetic/function tests normal - Suspect metabolic/NAFLD-related, but will need to inquire about EtOH. - Check lipid panel and A1c in AM Code: Full Diet: Regular PPX: Heparin Dispo: PCU (2) Weakness: (3) Leukocytosis: (4) Acute UTI: (5) Elevated troponin: (6) Acute hyponatremia: (7) Acute bronchitis: (8) Cough: Admission and Anticipated Discharge Date Admission Date: April 15, 2023 Supervising Physician Co-Signing Physician Notes Resident Physician Supervision Note: I independently interviewed and examined the patient and verified the love history and physical, reviewed labs and image studies and agree with resident findings and care plan. Subjective Endorses several days of urinary frequency and urgency, no dysuria or hematuria. Says this is atypical for him. No issues voiding normally - feels that stream is strong, nothing being retained. No pain with BM. He is not sexually active at this time and has not been sexually active in >6 months. His mouth/teeth don't hurt. No sinus issues. He lives in the [facility] [place] and has frequent exposure to ticks. Review of Systems Review of Systems: as per HPI Physical Exam Physical Exam: General: 67-year old male who is alert, oriented, and is in NAD. HEENT: NCAT. - Eyes - Sclera are white, anicteric, and without injection. - Mouth - MMM, poor dentition - Neck - supple, no appreciable JVD Cardiac: Normal rate and regular rhythm; S1 and S2 present with no murmur detected Pulmonary: Good respiratory effort with symmetric expansion of the chest. No use of accessory muscles. Lungs were CTAB Abdominal: Normoactive bowel sounds. Abdomen was soft, nondistended, and non- tender to palpation. Extremities: Upper and lower extremities are warm and well perfused. No peripheral edema in the lower extremities bilaterally Results & Data Results & Data Vital Signs (Past 12 Hours) Vital Signs Temp Pulse Pulse Resp BP BP Pulse Ox 04/16/23 07:54 37.6 C H 95 H 18 114/71 93 04/16/23 01:15 04/16/23 01:15 89 04/16/23 01:21 36.9 C 18 144/82 H 94 04/16/23 00:30 87 26 H 04/16/23 00:01 92 H 23 04/16/23 00:01 134/69 04/16/23 00:00 90 27 H 04/15/23 23:30 90 27 H 04/15/23 23:02 92/52 L 04/15/23 23:02 89 29 H 04/15/23 23:00 88 22 04/15/23 22:59 122/60 04/15/23 22:59 97 H 24 04/15/23 22:58 92 H 26 H 04/15/23 22:00 99 H 25 H 04/15/23 21:30 91 H 23 04/15/23 21:00 95 H 20 94 04/15/23 20:30 96 H 26 H 93 O2 Del Method 04/16/23 07:54 Room Air 04/16/23 01:15 Room Air 04/16/23 01:15 04/16/23 01:21 Room Air 04/16/23 00:30 04/16/23 00:01 04/16/23 00:01 04/16/23 00:00 04/15/23 23:30 04/15/23 23:02 04/15/23 23:02 04/15/23 23:00 04/15/23 22:59 04/15/23 22:59 04/15/23 22:58 04/15/23 22:00 04/15/23 21:30 04/15/23 21:00 04/15/23 20:30 Resident Activity Tracking Resident Involvement: Resident Care Provided Care Provided: Adult Hospital Medicine (1) Sepsis Sepsis acute organ dysfunction status: without acute organ dysfunction Sepsis type: sepsis due to unspecified organism Qualified Code(s): A41.9 - Sepsis, unspecified organism (3) Leukocytosis Leukocytosis type: unspecified Qualified Code(s): D72.829 - Elevated white blood cell count, unspecified
[2023-04-16 08:33] LABS: Hematocrit (blood only) 44.7 % (42.0-52.0); Hemoglobin 15.4 g/dl (14.0-18.0); Mean Corpuscular Hemoglobin 31.2 pg (25.0-34.0); Mean Corpuscular Hgb Conc 34.5 g/dL (32.0-36.0); Mean Corpuscular Volume 90.5 fL (80.0-100.0); Mean Platelet Volume 9.9 fL (9.4-12.4); Platelet Count 179 K/uL (130-400); RDW Coefficient of Variation 13.2 % (11.5-14.5); RDW Standard Deviation 44.4 fL (36.4-46.3); Red Blood Count 4.94 M/uL (4.70-6.10); White Blood Count 17.68 K/ul (4.8-10.8)
[2023-04-16 08:41] LABS: Albumin Globulin Ratio 0.9 (0.9-2); Albumin Level 3.2 gm/dl (3.4-5.0); BUN Creatinine Ratio 14.7 (10-20); Bilirubin,Total 1.1 mg/dl (0.2-1.0); Calcium 8.8 mg/dl (8.6-10.3); Est GFR (Non-African American) 83.7 ml/min; Globulin 3.6 gm/dl (2.5-4.0); Potassium 3.9 mmol/L (3.5-5.1); Total Protein 6.8 gm/dl (6.0-8.3)
[2023-04-16 08:49] LABS: Troponin I High Sensitivity 5.6 pg/ml (0-20)
[2023-04-16] MEDS: CEFEPIME 2,000 MG in SYRINGE 0 ML IV SCH ×2 (08:49→21:43)
[2023-04-16] MEDS: CEROVITE ADV FORMULA TAB PO SCH (08:49)
[2023-04-16] MEDS: HEPARIN SOD 5,000 UNIT/0.5 ML VIAL SQ SCH ×2 (08:49→21:45)
[2023-04-16 14:51] LABS: Potassium Random Urine 12.5 mmol/L
[2023-04-16 15:00] LABS: Creatinine Urine Random 45.4 mg/dl
[2023-04-17 07:46] LABS: Basophils # (auto) 0.05 K/uL (0-0.2); Basophils % (auto) 0.7 %; Eosinophils # (auto) 0.19 K/uL (0-0.50); Eosinophils % (auto) 2.5 %; Hematocrit (blood only) 44.2 % (42.0-52.0); Hemoglobin 15.6 g/dl (14.0-18.0); Immature Granulocytes % (auto) 1.3 %; Lymphocytes # (auto) 0.95 K/uL (1.2-3.4); Lymphocytes % (auto) 12.4 %; Mean Corpuscular Hemoglobin 31.3 pg (25.0-34.0); Mean Corpuscular Hgb Conc 35.3 g/dL (32.0-36.0); Mean Corpuscular Volume 88.6 fL (80.0-100.0); Mean Platelet Volume 10.3 fL (9.4-12.4); Monocytes # (auto) 0.87 K/uL (0.11-0.59); Monocytes % (auto) 11.4 %; Neutrophils # (auto) 5.48 K/uL (1.40-6.50); Neutrophils % (auto) 71.7 %; Platelet Count 175 K/uL (130-400); RDW Coefficient of Variation 13.2 % (11.5-14.5); RDW Standard Deviation 43.4 fL (36.4-46.3); Red Blood Count 4.99 M/uL (4.70-6.10); White Blood Count 7.64 K/ul (4.8-10.8)
[2023-04-17 07:50] LABS: BUN Creatinine Ratio 16.7 (10-20); Calcium 8.6 mg/dl (8.6-10.3); Creatinine Clr Calc Pharmacy 118.1 ml/min; Est GFR (African American) 109.8 ml/min; Est GFR (Non-African American) 94.7 ml/min; Estimated Average Glucose 128 mg/dl; Hemoglobin A1C 6.1 % (4.5-5.6); Potassium 3.8 mmol/L (3.5-5.1)
--- NOTE | 2023-04-17 08:05 | Hospitalist Progress Note ---
Date of Service April 17, 2023 Assessment & Plan (1) Sepsis: Plan: 67-year-old male who presented with 2-3 days of significant fatigue, chills, and sweats [employer], subsequently found to have a profound leukocytosis, tachycardia, and an abnormal UA which -- in the setting of his recent urinary frequency/urgency -- are concerning for sepsis from complicated UTI. CT-A/P negative for acute urologic or kidney abnormalities. Sepsis from Suspected UTI - Presented with significant chills, sweats, and fatigue with urinary frequency/urgency in the 3-4 days [employer] - Work-up as follows: - Admission leukocytosis to >30k with left shift; lactate negative - Lytes normal, TBili 1.5 with otherwise unremarkable LFTs - Procal 1.5, CRP 22 - Anaplasma/Babesia smears negative, Lyme Ig's negative - Urine demonstrating 2+ LE, >30 WBCs, 4+ bacteria - CXR without acute processes - CT-A/P with prostatomegaly, hepatomegaly/steatosis, left adrenal nodule (1.5cm); no acute findings. - He had urinary symptoms preceding this and is noted to have prostomegaly on CT. Will check PVRs today. This could certainly be an underlying reason for UTI. - Noted that he also has poor dentition, which could be a source for future infections -- will discuss prior to discharge / when more well - Await BCX, UCX - Continue cefepime for now. Weakness, Fatigue - Suspect secondary to above - Do not suspect he will require PT/OT but will monitor Hyponatremia - Euvolemic/Hypovolemic - Likely some component of dehydration initially given septic state, but overall looks euvolemic - May have component of SIADH in the setting of acute infection - Check sOsm, uOsm, Lidia, UCr, UK to further clarify - Low suspicion this is related to adrenal findings Adrenal Incidentaloma - LEFT adrenal nodule measuring 1.8cm appreciated incidentally on CT scan - Per radiology: Recommend "...a low-dose, non-contrast adrenal CT or chemical- shift adrenal MRI in 12 months" - Consider DHEA-S level as outpatient or DST Hepatic Steatosis - Appreciated on CT-A/P as hepatomegaly and steatosis - TBili 1.1, Na 131 otherwise liver synthetic/function tests normal - Suspect metabolic/NAFLD-related, but will need to inquire about EtOH. - Check lipid panel and A1c in AM Code: Full Diet: Regular PPX: Heparin Dispo: PCU (2) Weakness: (3) Leukocytosis: (4) Acute UTI: (5) Elevated troponin: (6) Acute hyponatremia: (7) Acute bronchitis: (8) Cough: Admission and Anticipated Discharge Date Admission Date: April 15, 2023 Results & Data Results & Data Vital Signs (Past 12 Hours) Vital Signs Temp Pulse Resp BP Pulse Ox O2 Del Method 04/17/23 07:13 36.9 C 84 18 120/76 95 Room Air 04/16/23 23:55 36.9 C 82 16 134/80 95 Room Air (1) Sepsis Sepsis acute organ dysfunction status: without acute organ dysfunction Sepsis type: sepsis due to unspecified organism Qualified Code(s): A41.9 - Sepsis, unspecified organism (3) Leukocytosis Leukocytosis type: unspecified Qualified Code(s): D72.829 - Elevated white blood cell count, unspecified
[2023-04-17] MEDS: HEPARIN SOD 5,000 UNIT/0.5 ML VIAL SQ SCH (08:36)
[2023-04-17] MEDS: CEROVITE ADV FORMULA TAB PO SCH (08:36)
[2023-04-17] MEDS ORDERED: cefTRIAXone SODIUM 2,000 MG in DEXTROSE 5% 50 ML IV SCH (09:00)
--- NOTE | 2023-04-17 11:22 | Discharge Summary ---
Date of Service April 17, 2023 Admission HPI Per Admitting Provider This is a 67-year-old male with no significant past medical history who presents to the emergency department with complaints of significant fatigue and generalized weakness has been present over the past 2 to 3 days. Patient reports extreme exhaustion over the past 2 days and reports that he has subjective chills but no recorded temperature reported. Patient has been feeling wiped out and has not been able to sleep well over the past 2 days as well. Patient denies any chest pain or shortness of breath and denies any nausea or vomiting. The symptoms have worsened over the past 24 hours and hence patient presents to ED for further evaluation.. Upon evaluation in the ED patient found to have elevated white count of over 30,000 along with low sodium level of 130. Further labs including lactic acid was not elevated and patient's urinalysis shows evidence of underlying urinary tract infection and patient is started on IV cefepime and is being admitted for further management this time. Admission Exam Per Admitting Provider Oral mucosa dry Head and ENT no thyroid enlargement trachea midline Cardiovascular S1-S2 are normal no S3 Lungs bilateral air entry decreased at bases no wheezing Abdomen soft nondistended positive bowel sounds no rebound tenderness Extremity shows trace edema Neurologically no focal deficits Skin shows no rash no cyanosis Principal Diagnosis sepsis secondary to UTI Discharge Exam Constitutional: well appearing, no acute distress HEENT: normocephalic, no conjunctival injection CV: regular rhythm, no murmur, no LE edema Respiratory: Clear to auscultation bilaterally. No rhonchi, wheezes, or crackles. No increased work of breathing GI: soft, nondistended, positive bowel sounds MSK: no gross deformities noted Skin: warm, dry, no rashes Neuro: alert, oriented, no FND noted Discharge Data Allergies Allergy/AdvReac Type Severity Reaction Status Date / Time No Known Allergies Allergy NONE Unverified 04/15/23 20:40 Consultations 04/15/23 21:03 ED Decision to Admit Stat Ordered Studies 04/15/23 19:23 CT abd pelvis IV con only Stat IMPRESSION: 1. No identified cause for elevated bilirubin or elevated WBC. 2. Hepatomegaly and steatosis. 3. Gallbladder and common bile duct appear normal. 4. Indeterminate left adrenal nodule measuring 1.8 cm. If there is no history of malignancy consider a follow-up low dose, non-contrast adrenal CT or chemical-shift adrenal MRI in 12 months. If there is a history of malignancy recommend a low dose, non-emergent, non-contrast adrenal CT or chemical-shift adrenal MRI follow-up study. Hospital Course (1) Sepsis: 67-year-old male who presented with 2-3 days of significant fatigue, chills, and sweats [employer], subsequently found to have a profound leukocytosis, tachycardia, and an abnormal UA which -- in the setting of his recent urinary frequency/urgency -- are concerning for sepsis from complicated UTI. CT-A/P negative for acute urologic or kidney abnormalities. Sepsis from Suspected UTI - Presented with significant chills, sweats, and fatigue with urinary frequency/urgency in the 3-4 days [employer] - Work-up as follows: - Urine cx grew >100,000 pansensitive E.coli; blood cx neg - CT-A/P with prostatomegaly, hepatomegaly/steatosis, left adrenal nodule (1.5cm); no acute findings - He had urinary symptoms preceding this and is noted to have prostomegaly on CT, PVRs WNL - s/p cefepime (1 day), ceftriaxone (1 dose) - d/c home w/ 7 days of cephalexin - recommend outpatient f/u Hyponatremia - Euvolemic/Hypovolemic - Likely some component of dehydration initially given septic state, but overall looks euvolemic - Na improved to 134 on day of discharge. 130 on admission. - recommend recheck after pt recovers from current infection Adrenal Incidentaloma - LEFT adrenal nodule measuring 1.8cm appreciated incidentally on CT scan - Per radiology: Recommend "...a low-dose, non-contrast adrenal CT or chemical- shift adrenal MRI in 12 months" - Consider DHEA-S level/dexamethasone suppression test as outpatient Hepatic Steatosis - Appreciated on CT-A/P as hepatomegaly and steatosis - Suspect metabolic/NAFLD-related - lipids grossly WNL; A1c 6.1 - recommend discussion of healthy lifestyle to prevent development of DM as an outpatient (2) Weakness: (3) Leukocytosis: (4) Acute UTI: (5) Elevated troponin: (6) Acute hyponatremia: (7) Acute bronchitis: (8) Cough: Total Time Total Time Spent Total Time Spent (In Minutes): as per attending attestation Discharge Plan Discharge Items Patient Disposition: Home - Self-Care Reason For Visit: SEPSIS Discharge Diagnosis: sepsis secondary to UTI Condition on Discharge: Fair Activity: Resume your previous activity Non-emergency contact: Primary Care Provider and Urologist Call non-emergency contact if: you have any medication questions Follow-up/Referrals: [facility] [place] [facility] [Provider Group] (complicated UTI, no signs of obstruction based on PVR) Stephan Lewis MD [Primary Care Provider] - (sepsis secondary to UTI) Diet: Carb Consistent or DM2 and Heart Healthy Addtl Attending Provider Instructions: You were admitted to the hospital for general weakness and fatigue and found to have a urinary tract infection. Bacteria has grown in your urine that was sensitive to all antibiotics. No bacteria was found in your blood. You were treated with antibiotics. As part of your work up, a CT scan was done of your abdomen. On this, there was an incidental finding of a lesion on your left adrenal gland. This should be further discussed with your primary care doctor. A discharge summary will be sent to your primary care physician to ensure continuity of care. Please bring this discharge summary with you to your next office appointment so that your provider can review it at that time. Medications: Your medication list has been reviewed and reconciled upon discharge to ensure accuracy and continuity of care. An updated list of all your medications is included with your hospital discharge paperwork. Please review this list closely and make note of any changes to your medications. - You should take the antibiotic cephalexin 4 times per day for the next 7 days. - Otherwise, there were no changes to your home medications. Follow up appointments: - Make a follow up appointment with your PCP within the next week. It is very important that you follow up with them shortly after discharge from the hospital. - A referral was placed for to see a urologist to further evaluate why this UTI occurred. Please reach out to the [facility] [place] urology team if you do not hear about an appointment with them. - Keep all of your follow up appointments as already scheduled. If you cannot make an appointment, notify your provider. CONTACT YOUR PRIMARY CARE PROVIDER if you experience any of the following: - Difficulty following your treatment plan - Difficulty taking any of your medications CALL 911 OR GO TO THE EMERGENCY DEPARTMENT if you experience any of the following: - Sudden, severe abdominal pain or nausea/vomiting - Severe chest pain or chest pain that radiates to your jaw or arm - Sudden, severe shortness of breath or difficulty breathing Pending Studies at Discharge: No Stand-Alone Forms: My [facility], Smoking Cessation Medications and DC Order Prescriptions: New cephalexin 500 mg capsule 500 mg PO Q6H 7 Days Qty: 28 0RF Continued ibuprofen 400 mg Tablet 400 mg PO DAILY PRN (Reason: Pain) Centrum Silver Ultra Men's 300-600-300 mcg Tablet 1 tab PO DAILY Discharge Orders: Discharge Order (Routine); Ordered 04/17/23 Ordered By: Kathy Hassan Admission Data Admit Date/Time: 04/15/23 23:48 Attending Provider: Sarita Glez Admit Provider: Eliu Chakraborty Primary Care Provider: Stephan Lewis Other Providers: Sang Giraldo ; Eliu Chakraborty Other Interventions: Discharge Summary Assessment (RN) Last Done: 04/17/23 13:14 Supervising Physician Co-Signing Physician Notes Resident Physician Supervision Note: I independently interviewed and examined the patient and verified the love history and physical, reviewed labs and image studies and agree with resident findings and care plan. Resident Activity Tracking Resident Involvement: Resident Care Provided Care Provided: Adult Hospital Medicine
[2023-04-21 03:22] LABS: Babesia microti DNA Not Detected (Not Detected)
--- NOTE | 2023-05-04 08:18 | Coding Query ---
A supporting diagnosis is required for the test/procedure performed on this patient in order for us to be reimbursed by the patient's insurance. Please provide a supporting diagnosis for the following test/procedure listed below next to the test name along with your signature. *If there is no additional diagnosis for this patient that would support the following test/procedure please document that below next to the test/procedure. Test(s)/Procedure(s) that require a supporting diagnosis: HBA1C DIAGNOSIS: Hepatic steatosis, (concern for) insulin resistance, prediabetes Provider Signature: Ranjeet Kim MD Date: ___05/04/23____ Thank you Maki Massey Health Information Management Once completed, please kindly fax back to [phone] For questions please call [phone] NATACHA
== END 2023-04-17 14:05 | disposition home or self-care (01) | DRG 872 ==
LOC: ED 17:47 → INTOOBSV 23:48 → 4W 23:48 → SUATTDRO 23:48 → 4W 04-16 00:56 → 3N 04-16 18:36